=== PATIENT | male | born 1985 | race Caucasian/White ===

== ENCOUNTER 2019-07-27 01:10 | Outpatient (CLI) | payer OTHER, SELFPAY ==
[2019-07-27 12:55] LABS: Calculated LDL 155 mg/dL; Cholesterol 204 mg/dL (50-200); Glucose 96 mg/dL (70-100); HDL Cholesterol 37 mg/dL (40-60); Triglyceride 61 mg/dL (30-150)
== END 2019-07-27 01:30 ==
PROVIDERS: PCP Family Medicine; Visit Provider Family Medicine
DX: Z00.00 Encounter for general adult medical examination without abnormal findings (principal); Z13.1 Encounter for screening for diabetes mellitus; Z13.220 Encounter for screening for lipoid disorders
CPT/HCPCS: 36415; 80061; 82947

== ENCOUNTER 2019-11-21 04:35 | Outpatient (CLI) | payer OTHER, SELFPAY ==
--- NOTE | 2019-12-11 08:23 | W.ZIOMONITOR ---
Date of service: 12/11/19 Time of Service: 08:23 ZIO Patch Supervisor Gate Services Note: This is a 2-week ZIO patch ordered for the indication of supraventricular tachycardia. ?Patient was in normal sinus rhythm for the majority of the recording. ?There were no episodes of supraventricular tachycardia and rare (less than 1%) supraventricular ectopic beats. ?There was one episode of ventricular which lasted 6 beats. ?There were rare (less than 1%) single ventricular ectopic beats. ?There were no pauses greater than 3 seconds, episodes of high degree heart block or episodes of atrial fibrillation. ?There were a total of 6 patient triggered events. Patient triggered events were associated with the one episode of ventricular tachycardia. There were also triggered events associated with sinus rhythm and single ventricular/supraventricular ectopic beats.
== END 2019-11-21 04:55 ==
PROVIDERS: PCP Family Medicine; Visit Provider Family Medicine
DX: I47.1 Supraventricular tachycardia (principal); I49.3 Ventricular premature depolarization
CPT/HCPCS: 0296T

== ENCOUNTER 2020-01-02 01:16 | Outpatient (CLI) | payer OTHER, SELFPAY ==
--- NOTE | 2020-01-02 07:46 | ETT_ITS ---
APPROVED REPORT Exam: Exercise Treadmill Patient Location: Out-Patient Room/Bed: Stress Nurse: Gabrielle Bateman RN BMI: 31.19 Baseline Rhythm: Sinus Rhythm Indications: Patient reports intermittent palpitations since 2005. Patient states he had a Zio patch in 2015 which revealed 3 episodes of SVT, then in 2018 again with Zio patch revealed a 6 beat run V T ach. Note: Propranolol (prescribed for ALVARES???s). Medical History Medical History: SVT, V Tach (per patient report) Cardiac Medications: None Allergies: Augmentin, Penicillin Cardiac Risk Factors: FHX of CAD, Hyperlipidemia Previous Cardiac Procedures: None Pretest Chest Pain Characteristics: None Exercise History: Physically active Physical Disabilities: None Lung Sounds: Clear to auscultation Heart Sounds: Regular Stress Test Details Test: Exercise stress testing was performed using a Hunter protocol. Rest Stress HR Resting HR Supine: 82 bpm Max Heart Rate (APMHR): 185 bpm Resting HR Standin bpm Target HR (85% APMHR): 157 bpm Max HR Achieved: 190 bpm % of APMHR: 102 HR response to stress: Normal HR response to stress BP Resting BP Supine: 148/90 mmHg Resting BP Standin/90 mmHg Max BP: 204/70 mmHg BP response to stress: Normal blood pressure response to stress. ECG Resting ECG: Sinus Rhythm Ectopy: Rare PVC's Stress ECG: Sinus Tachycardia ST Change: Normal Arrhythmia: None Recovery ECG: Sinus Rhythm Recovery ST Change: Normal Recovery Arrhythmia: None Clinical Reason for Termination: Fatigue Stress Symptoms: None Exercise duration: 16 min1 sec Highest Stage Reached: Stage 6: 5.5 mph at 20% grade. Exercise capacity: 15.93 METs Functional Capacity: Above average capacity Stress ECG Conclusion 1. Exercised for 16 minutes (16 METS). The test was stopped due to fatigue. 2. Patient showed a normal blood pressure and heart rate response to exercise. Rate-pressure product was 37,000. 3. There is no evidence of ischemia or ectopy on ECG at this level of stress. 4. The Mayberry Score (13) estimates an annual cardiovascular mortality of 0% and a five year survival of 96%. Using the Mayberry Score there is a low probability of any angiographic coronary disease. Protocol Used: Hunter Protocol Stress Test Summary STAGE Time (mins) Speed (mph) Grade (%) HR BP SYMPTOMS METS Supine 82 148/90 Standing 93 150/90 1 3 1.7 10 106 162/94 4.6 2 6 2.5 12 126 170/92 7 3 9 3.4 14 140 190/90 10.2 4 12 4.2 16 158 198/92 12.9 5 15 5.0 18 17.2 1 min recovery 167 204/70 3 min recovery 117 200/80 6 min recovery 111 160/80 9 min recovery 110 140/84 12 min recovery 104 138/90 15 min recovery 101 150/94
== END 2020-01-02 01:36 ==
PROVIDERS: PCP Family Medicine; Visit Provider Family Medicine
DX: R07.9 Chest pain, unspecified (principal); R00.2 Palpitations; I47.1 Supraventricular tachycardia; E78.5 Hyperlipidemia, unspecified; Z82.49 Family history of ischemic heart disease and other diseases of the circulatory system
CPT/HCPCS: 93017

== ENCOUNTER 2020-08-21 22:01 | Outpatient (REF) | payer OTHER, SELFPAY ==
[2020-08-21 22:22] LABS: Calculated LDL 182 mg/dL (<100); Cholesterol 227 mg/dL (<200); HDL Cholesterol 34 mg/dL (40-60); Triglyceride 55 mg/dL (<150)
== END 2020-08-21 22:21 ==
LOC: LBN 22:01
PROVIDERS: PCP Family Medicine; Visit Provider Family Medicine
DX: E78.5 Hyperlipidemia, unspecified (principal)
CPT/HCPCS: 80061

== ENCOUNTER 2021-12-25 09:56 | Outpatient (CLI) | payer OTHER, SELFPAY ==
--- NOTE | 2021-12-25 10:00 | DI.RAD_ITS ---
Exam(s) XR LUMBAR SPINE COMPLETE EXAM: XR LUMBAR SPINE COMPLETE CLINICAL HISTORY: rt sciatica, back pain, M54.9 dorsalgia. TECHNIQUE: 2D digital imaging was performed of the lumbar spine. Five images were obtained. AP, la teral, right oblique, left oblique and L5-S1 spot views were obtained. COMPARISON: No exams were available for comparison FINDINGS: BONES: No fracture or destructive lesion. Vertebral bodies are unremarkable. Degenerative changes of the facets are seen at L4-5 and L5-S1. DISKS: Intervertebral disc spaces are maintained. ALIGNMENT: Lumbar spinal alignment is within normal limits. No spondylolysis or spondylolisthesis. SOFT TISSUE: Normal. IMPRESSION: Mild degenerative changes in the lumbar spine. DATA REPOSITORY: RADIATION DOSE DELIVERED:
--- OUTSIDE RECORDS SUMMARY | 2021-12-25 10:03 | XMS_ITS | Encounter Summary ---
:1985 Author Organization [facility] Address [address] [place] [id number] Care Team Providers Name Role Phone RACHELE COOL Primary Care Provider Unavailable Insurance Providers: All historical and current Section Date Range: From patient's date of to the date document was created.This section includes the names of all active insurance providers for the patient. Insurance Type of Plan Start of End of Group Member Insurance Policy P atient's Provider Coverage Name Policy Policy Number ID Provider's Jordan's Relationship Coverage Coverage Telephone Name to Policy Number Jordan [facility] May 29 [id number] [phone] [place] , PATIENT EXPENSE OF 2019 [id number] MARICEL (OPT/PROF FEDE ) [facility] May 29 [id number] [phone] [place], PATIENT BEHAVIORAL HEALTH OF 2019 69 3 MARICEL [facility] Nov 29 [id number] [phone] COLGROVE, PATIENT BEHAVIORAL HEALTH 2014 72 3 MARICEL [facility] Nov 29 [id number] [phone] COLGRO VE, PATIENT HEALTHCARE PROVIDER OF 2014 72 4 MARICEL GOLDMAN (PPO) [employer] May [id number], [id number] [phone] COLGR O[address], PATIENT SCRIPTS ION 2019 [id number] MARICEL ([id number]) 0 MAXRA PRESCRIPT [facility] Nov 29, [id number] [phone] COL LICONA, PATIENT ION OF 2014 8 72 7 MARICEL CARDONA Selected Encounter This section includes the information on record at [place] for the Encounter. Date/Time Encounter Type Encounter Description Reason Provider Source May 23, 2021 10:52 Outpatient Encounter PRIMARY CARE/MEDICINE AM [facility] Encounter Template Text not used by [facility] Encounter Notes: All associated encounter notes This section contains the clinical notes associated to the Encounter. Date/Time Encounter Note(s) Provider Source May 22, 2021 12:45 PM NONVA NOTE: LASHON HUANG [facility] LOCAL TITLE: NonVA Medical Records STANDARD TITLE: NONVA NOTE DATE OF NOTE: MAY 22, 2021@12:45 ENTRY DATE: MAY 23, 2021@10:54:23 AUTHOR: LASHON HUANG EXP COSIGNER: URGENCY: STATUS: COMPLETED Non-VA notes The attached Non-VA note contains the following information: Event/Procedure: Neurology Clinic Visit Date of Service: 05/22/2021 Treating Facility: Dictated in part: 1) Migraine headache with aura 2) SVT #1 Migraine headaches with aura. Headaches are under generally good control. Have been concerned about propranolol related fa tigue for some time. It has never been helpful for his p alpitations. Will have him stop this. If headaches increase and he proves to need a preventative we discussed different options. He prefers verapamil as next option and then top iramate as the next best. He will continue to use Excedrin and sumatriptan fo r rescue therapy. Pt instructions: Stop propranolol. Keep tr acking headaches Continue excedrin and sumatriptan as needed Follow up in 1 year Paperwork was sent down to [place] for scanning To view this document, open the CPRS tools menu and then open the image display viewer. /vanessa/ Lashon Huang Housemaid Signed: 05/23/2021 11:05
--- OUTSIDE RECORDS SUMMARY | 2021-12-25 10:04 | XMS_ITS | Encounter Summary ---
:1985 Author Organization Department [facility] rs Address [address] [place] [address] Care Team Providers Name Role Phone RACHELE [...] Coverage Telephone Name to Policy Number Jordan [facility] May 29 [id number] [phone] [place] , PATIENT EXPENSE OF 2019 [id number] ERNESTO (OPT/PROF FEDE ) [facility] May 29 [id number] [phone] [place], PATIENT BEHAVIORAL HEALTH OF 2020 69 3 ERNESTO CARDONA [facility] Nov 29 [id number] [phone] [place], PATIENT BEHAVIORAL HEALTH 2014 72 3 ERNESTO PORTER [facility] Nov 29 [id number] [phone] COLGRO VE, PATIENT HEALTHCARE PROVIDER OF 2014 72 4 ERNESTO GOLDMAN (PPO) [facility] May 29, [id number] [phone] COLGR OVE, PATIENT SCRIPTS ION 2019 [id number] ERNESTO ([id number]) 0 [facility] Nov 29, [id number] [phone] COL LICONA, PATIENT ION OF 2014 8 [phone] 7 ERNESTO CARDONA Selected Encounter This section includes the information on record at [facility] for the Encounter. Date/Time Encounter Type Encounter Reason Provider Source Description Feb 06, 2021 OFFICE O/P EST PRIMARY ICD-10-CM Z00.01 GERARDO FREEMAN 11:00 AM MOD 30-39 MIN CARE/MEDICINE Encounter for SUZANNA general adult medical exam w abnormal findings with Provider Comments: Encounter for General Adult Medical Examination with Abnormal Findings IHE Encounter Template Text not used by [facility] Assessments - Encounter Diagnoses This section includes the primary and secondary diagnoses documented forthe Encounter. Date/Time Primary/Secondary Diagnosis Name Provider Source Diagnosis Feb 06, 2021 PRIMARY Encounter for AUSTIN NUNEZ 12:44 PM general adult [facility] medical exam w abnormal findings Feb 06, 2021 SECONDARY Dry eye syndrome MAYRAAUSTIN BROWNBU RY 12:44 PM of bilateral [facility] lacrimal glands Feb 06, 2021 SECONDARY Migraine, unsp, MAYRA,AUSTIN CASTANEDABUR Y 12:44 PM not intractable, [facility] without status migrainosus Feb 06, 2021 SECONDARY Unspecified MAYRAAUSTIN BROWN 12:44 PM hearing loss, left [facility] ear Plan of Treatment: Future Appointments (+ 6 months) and Future Tests (+/- 45 days) The Plan of Treatment section includes future care activities for the patient from all [place] treatment facilities. This section includes future appointments and future orders which are active, pending or scheduled.Future Appointments This section includes appointments that were scheduled to occur 6 months from the date of the Encounter, up to a maximum of 20 appointments. The data comes from [facility] [place] [facility] Appointment Date/Time Appointment Type Appointment Facili ty Name Feb 12, 2021 09:00 AM AMBULATORY - REHAB MEDICINE YVONNE Casper [facility] Mar 20, 2021 11:00 AM AMBULATORY - NONE YVONNE ARNETT [facility] Lab Results: +/- 30 days of the encounter This section includes the Chemistry and Hematology Lab Results on record with [place] for the patient. Radiology Reports and Pathology Reports are provided separately, in subsequent sections.Lab Results This section contains the Chemistry/Hematology Results that were resulted 30 days before or 30 days after the date of the Encounter. Date/Time Source Result Type Result - Unit Interpretation Reference Range Comment Feb 06, 2021 12:13 [facility] Specimen Type: PLASMA PM [facility] FRACT. 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) Ordering Provider: GERARDO FREEMAN Report Released Date/Time: Feb 06, 2021 12:02 PM Reporting Lab: [place] [facility] [address] [address] Performing Lab: [place] [facility] [address] [address] CHOLESTEROL 220 mg/dL H 0-199 TRIGLYCERIDE 128 mg/dL 0-149 HDL CHOLESTEROL 33 mg/dL L >40 LDL CHOLESTEROL (CALC) 161 mg/dl H 0-129 Feb 06, 2021 [place] GLYCOHEMOGLOBIN (A1C ONLY) Specimen Type: BLOOD 12:13 PM [facility] Comment: 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 [employer] (405) Ordering Provider: GERARDO FREEMAN Report Released Date/Time: Feb 06, 2021 12:02 PM Reporting Lab: [place] [facility] [address] [address] Performing Lab: [facility] [address] [address] HEMOGLOBIN A1C 5.2 % 4.0-5.6 Feb 06, 2021 12:13 PM [place] [facility] CBC NO DIFF Specimen Type: BLOOD No comment enter ed. 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 (405) Ordering Provider: GERARDO FREEMAN Report Released Date/Time: Feb 06, 2021 12:02 PM Reporting Lab: [facility] [address] [address] Performing Lab: [facility] [place] [facility] [address] [address] UREA NITROGEN 16 mg/dL 7-25 SODIUM 138 mmol/L 135-145 POTASSIUM 4.5 mmol/L 3.5-5.0 CHLORIDE 103 mmol/L 100-110 CARBON DIOXIDE 27 mmol/L 20-30 ANION GAP 8 mmol/L 4-16 GLUCOSE 98 mg/dL 65-100 CREATININE 1.16 mg/dl 0.5-1.5 CALCIUM 9.2 mg/dL 8.5-10.5 eGFR 71 mL/min >60 Feb 06, 2021 12:13 PM [facility] LIVER PROFILE Specimen Type: PLASMA Comment: 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 [employer]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 (405) Ordering Provider: GERARDO FREEMAN Report Released Date/Time: Feb 06, 2021 12:02 PM Reporting [facility] [address] [address] Performing Lab: [facility] [place] [facility] [address] [address] PROTEIN, TOTAL 7.9 g/dL 6.0-8.5 ALBUMIN 4.4 g/dL 3.2-5.0 BILIRUBIN, TOTAL 0.8 mg/dL 0.2-1.2 ALKALINE PHOSPHATASE 62 U/L 40-150 ALT(SGPT) 23 U/L 7-52 AST(SGOT) 22 U/L 5-34 Social History: Smoking Status (Most current) and Tobacco Use (All prior to encounter date) This section includes the most current, and the historical, smoking and tobacco-related health factors from the [facility] where the Encounter took place.Current Smoking Status This section includes the most current smoking, or tobacco-related health factor, from the [place] facility where the Encounter took place. Date/Time Current Smoking Status Comment Facility Feb 06, 2021 11:00 AM [facility]TOBACCO [facility] Tobacco Use History This section includes a history of the smoking, or tobacco-related health factors, that were collected on or before the date of the Encounter. The data comes from the [place] facility where the Encounter took place. Date/Time Smoking Status/Tobacco Use Comment [facility] Jan 03, 2020 10:06 AM VA-TOBACCO NEVER [facility] Aug 22, 2018 01:40 PM VA-TOBACCO NEVER [facility] Jan 29, 2016 02:28 PM LIFETIME NON-TOBACCO USER [facility] Dec 09, 2006 02:14 PM LIFETIME NON-TOBACCO USER [facility] Encounter Notes: All associated encounter notes This section contains the clinical notes associated to the Encounter. Date/Time Encounter Note(s) Provider Source Feb 11, 2021 02:35 LETTERS: GERARDO FREEMAN. [facility] LOCAL TITLE: Letter To Patient STANDARD TITLE: LETTERS DATE OF NOTE: FEB 11, 2021@14:35 ENTRY DATE: FEB 11, 2021@14:35:19 AUTHOR: GERARDO FREEMAN EXP COSIGNER: URGENCY: STATUS: COMPLETED [facility] [address] [place] [address] FEB 11, 2021 MR. ERNESTO LARKIN [address], [place] [address] Dear Mr. Ernesto Larkin: I wanted to let you know the results of your l ab work. - Complete Blood Counts > NORMAL (looking for in fection, anemia, ability to clot) HCT: 48.2 (02/06/21 12:13) HGB: 15.8 (02/06/21 12:13) MCH: 30.5 (02/06/21 12:13) MCHC: 32.8 (02/06/21 12:13) MCV: 93.1 (02/06/21 12:13) MPV: 10.1 (02/06/21 12:13) PLT: 279 (02/06/21 12:13) RBC: 5.18 (02/06/21 12:13) RDW: 12.5 (02/06/21 12:13) WBC: 6.5 (02/06/21 12:13) - Cholesterol panel > > Acceptable CHOL: 220 (02/06/21 12:13) Goal < 199 HDL: 33 (02/06/21 12:13) Goal > 40 LDL: 161 (02/06/21 12:13) Goal < 129 TRI (02/06/21 12:13) Goal < 150 - Kidney, electrolytes > NORMAL GLU: 98 (02/06/21 12:13) BUN: 16 (02/06/21 12:13) CREATI: 1.16 (02/06/21 12:13) NA: 138 (02/06/21 12:13) K: 4.5 (02/06/21 12:13) CL: 103 (02/06/21 12:13) CO2: 27 (02/06/21 12:13) eGFR 71 02/06/21 12:13 - Liver >> NORMAL Collection DT Specimen Test Name Result Units Ref Range 02/06/2021 12:13 PLASMA ALBUMIN 4.4 g/dL 3.2 - 5.0 02/06/2021 12:13 PLASMA BILIRUBIN, TOTAL 0.8 mg/dL 0.2 - 1.2 02/06/2021 12:13 PLASMA ALKALINE PH OSPHAT 62 U/L 40 - 150 02/06/2021 12:13 PLASMA ALT(SGPT) 23 U/L 7 - 52 02/06/2021 12:13 PLASMA AST(SGOT) 22 U/L 5 - 34 - Diabetes/HbA1c was NORMAL HGB A1C: 5.2 (02/06/21 12:13) Reference: 4.0 - 5.6 normal, 5.7 - 6.4 pre-diabe julio, >=6.5% diabetic range If you have any further questions feel free to c all [phone]. Please ask for the nurse and leave a de tailed message related to your question or concern. We are ready to assist you in your health and we llness goals. Sincerely, Gerardo Freeman, [place], FIRE PREVENTION RESEARCH ENGINEER Nurse Practitioner Feb 06, 2021 11:06 PRIMARY CARE NOTE: [facility] TITLE: Primary Care Clinic Note STANDARD TITLE: PRIMARY CARE NOTE DATE OF NOTE: FEB 06, 2021@11:06 ENTRY DATE: FEB 06, 2021@11:06:51 AUTHOR: GERARDO FREEMAN EXP COSIGNER: URGENCY: STATUS: COMPLETED 36 year old Cinebar with a PMH of: Migraines SUBJECTIVE: cc: here for annual exam HPI: Pt is feeling healthy and well with no acu te concerns Migraines -Has been on a propranolol for a few years -Still having ALVARES, not as frequent -Reports that he has migraines about every 5 wee ks (down from weekly) -Still has ALVARES 6-8 a month, which he reports is a decreased frequency -Sumatriptan... has used only a few times... end ed up nauseas once -uses Excedrin PRN... 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 Reports good appetite. ENDO: Denies significant weight changes EENT: Denies ear pain, sore throat; denies visio n CV: Denies chest pain, MALDONADO Reports irregular HR, palpitations (stab le for him) PULM: Denies SOB, difficulty breathing, cough GI: Denies n/v, diarrhea, constipation, blood in stool : Denies urinary frequency, urgency, Nocturia, changes in libido, difficulty/changes with erections. Sexually Acti ve [Y], safe sex: yes MSK: Denies joint pain, myalgias NEURO: Denies numbness/tingling, weakness, be e in gait/balance EXT: Denies edema, pain SKIN: Denies new or changed lesions PSYCH: Feels safe at home. Reports anxie ty [-], feeling down [-], depressed or hopeless [-]. 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 Supraventricular tachycardia 2. Obesity 3. HLD - Hyperlipidemia 4. Impaired fasting glucose 5. Migraine (SNOMED CT 55683897) 6. Pounding heart (SNOMED CT 132533117) 7. Tinnitus (SNOMED CT 33637319) 8. Health Maintenance MEDS: Active Outpatient Medications (excluding Supplie s): Active Outpatient Medications Status 1) PROPRANOLOL HCL 80MG SA CAP TAKE ONE CAPSUL E BY MOUTH ACTIVE EVERY DAY FOR BLOOD PRESSURE/HEART 2) SUMATRIPTAN SUCCINATE 50MG TAB TAKE ONE TAB LET BY ACTIVE MOUTH NEEDED FOR MIGRAINE HEADACHE - T SEBASTIAN AT FIRST SIGN OF HEADACHE,MAY REPEAT ONCE IN TWO HOURS IF HEADACHE REMAINS TAKE ONE TABLET AT O NSET OF HEADACHE, IF NOT RELIEF MAY REPEAT 1 TABL ET AFTER AT LEAST 2 HOURS; MAX 4 TABS/24 HOURS. RX BY SAMM VAN STRATEN, MD Active Non-VA Medications Status 1) Non-VA ACETAMINOPHEN 250/ASA 250/CAFF 65MG TAB 2 ACTIVE TABLETS MOUTH EVERY DAY NEEDED 2) Non-VA MULTIVITAMIN/MINERALS CAP/TAB 1 TAB MOUTH ACTIVE EVERY DAY 4 Total Medications ALLERGIES: PENICILLIN OBJECTIVE: T: 97.8 F [36.6 C] (02/06/2021 10:55) BP:122/81 (02/06/2021 10:55) HR:63 (02/06/2021 10:55) SpO2: 02/06/21 @ 1055 PULSE OXIMETRY: 98 BMI: BODY MASS INDEX - FEB 06, 2021@10:55:01 3 2.5 WT: 238.8 lb. [108.5 kg] (02/06/2021 10:55) HT: 72 in [182.9 cm] (02/06/2021 10:55) GEN: Well-appearing, male in no apparent distres s. ENT: hearing intact, TMs normal NECK: supple. Thyroid normal. CV: RRR S1 S2 normal, no murmurs, rubs or gallop s CHEST: CTA bilateral, no crackles or wheezes ABD: BS normal, soft, nontender, no masses, no h epatosplenomegaly EXT: no edema; 2+ palpable pulses bilateral radi al and posterior tibialis MSK: Coordinated gait, bilateral UE and LE proxi mal and distal strength 5/5 NEURO: Alert and oriented, CN II-XII elke ssly intact, DTRs 2+ bilateral biceps, triceps, patellar, and Achilles SKIN: pink warm dry, no rashes LYMPH: no lymphadenopathy PSYCH: Appropriate affect and demeanor, normal s peech pattern Labs/Tests: ASSESSMENT/PLAN: 1. Annual Exam -Medications reviewed and updated -Labs ordered 2. Migraine with aura -Continue with Propranolol and Sumatript an Tabs -Discussed changing to nasal sumatriptan or ODT rizatriptan if he continues to have issues with nausea -Encouraged to keep ALVARES Diary again (mini mum 3 months) -Discussed Aimovig v s. Botox therapy if he has 15 or more ALVARES days/month -Will call with ALVARES diary results if he i s interested in above -Discussed renewing CC Neurology consult [facility] Samm Nieves MD 3. Left sided hearing changes -Encouraged to sched ule appointment with audiology before leaving today -ENT consult to [facility] placed 4. Dry Eyes -Trial CARBOXYMETHYLCELLULOSE 1% GEL,O PH 1% q 2 hours PRN -Eye Clinic Consult For [facility] Eye [facility] re (appointment in 05/06/2021) 5. Possible Sleep Apnea -Discussed sleep clinic consult, decline d at this due to other issues -Hx loud snoring, frequent morning ALVARES, l arge neck -Will place sleep clinic consult if he c alls clinic requesting Reviewed: Medication/treatment benefits/risks/si de effects/monitoring Preventive/Health Maintenance: diet and exercise discussed RTC: 12 months for annual exam and PRN Reminders: Advance Directive Screen: Patient does not have an advanced directiv e on file. Patient is interested in completi ng an advanced directive. A blank copy was given to the patient and he/she will return a compl eted copy. The patient received education about advan ce directives as well as written notification of his/her rights. BMI>30/>24.99 High Risk: At this visit, the health risks of obesity were reviewed and discussed with the [place], and the benefits of a weight management treatment program, such as [facility]! was discussed and offered to the [place]. After discussing the health risks of b eing overweight or obese and providing information about available weight management treatment, and offering a referral to [facility] or ano ther weight management treatment program outside the [facility], the patient DECLINES REFERRAL to M[facility] or any other weight management tr eatment program at this time. Tobacco Use Screening: The patient has never used tobacco. Lipid Screening: Lipid profile ordered at this encounter. Medication Reconciliation: Outpatient: Has the patient been taking medications as documented in the EMLR? YES: The patient has been taking medicatio ns as documented in the EMLR. Essential Medication List for Review used to complete this medication reconciliation. INCLUDED IN THIS LIST: Alphabetical list o f active outpatient prescriptions dispensed from this [facility] (loca l) and dispensed from another VA or [facility] facility (remote) as well as inp atient orders (local, pending and active), local clinic medications, loc ally documented non-VA medications, and local prescriptions that have or been discontinued in the past 90 days. - All changes in medic ations, including all non-VA/Herbal/OTC medications were entered into CPRS. - If there were any medications the patien t should no longer take, they were discontinued. - The patient/caregiver was instructed to update this list, discard old lists, and take this list to the next appo intment, whether with a VA or non-VA provider. Depression Screening: Perform PHQ-2 A PHQ-2 screen was performed. The sc ore was 0 which is a negative screen for depression. Over the past two weeks, how often h ave you been bothered by the following problems? 1. Little interest or pleasure in do ing things Not at all 2. Feeling down, depressed, or hopel ess Not at all Suicide Screen: C-SSRS Screening [place]-Suicide Severity Rating Scale (C- SSRS Screener) 1. Over the past month, have you wished you were or wished you could go to sleep and not wake up? No 2. Over the past month, have you had any actual thoughts of killing yourself? No 3. Over the past month, have you been th inking about how you might do this? Response not required due to responses t o other questions. 4. Over the past month, have you had the se thoughts and had some intention of acting on them? Response not required due to responses t o other questions. 5. Over the past month, have you started to work out or worked out the details of how to kill yourself? Response not required due to responses t o other questions. 6. If yes, at any time in the past month did you intend to carry out this plan? Response not required due to responses t o other questions. 7. In your lifetime, have you ever done anything, started to do anything, or prepared to do anything to end your life (for example, collected pills, obtained a gun, gave away valuables, went to the roof but didn't jump)? No 8. If YES, was this within the past 3 mo nths? Response not required due to responses t o other questions. /vanessa/ Gerardo Freeman, DNP, FIRE PREVENTION RESEARCH ENGINEER Nurse Practitioner Signed: 02/06/2021 12:44 Feb 06, 2021 10:59 PRIMARY CARE ANNUAL EVALUATION NOTE: Alcides LOMAX [facility] AM [facility] TITLE: Preventive Health Annual Review STANDARD TITLE: PRIMARY CARE ANNUAL EVALUATION N OTE DATE OF NOTE: FEB 06, 2021@10:59 ENTRY DATE: FEB 06, 2021@10:59:33 AUTHOR: FREDY LOMAX EXP COSIGNER: URGENCY: STATUS: COMPLETED Advance Directive Screen: Patient does not have an advanced directiv e on file. Patient is interested in completi ng an advanced directive. A blank copy was given to the patient and he/she will return a compl eted copy. The patient received education about advan ce directives as well as written notification of his/her rights. Alcohol Use Screen (AUDIT-C): Alcohol Screen: SCREEN FOR ALCOHOL (AUDIT-C) An alcohol screening test (AUDIT-C ) was negative (score=0). 1. How often did you have a drink containing alcohol in the past year? Never 2. How many drinks containing alco hol did you have on a typical day when you were drinking in the past year? Response not required due to respo nses to other questions. 3. How often did you have six or m ore drinks on one occasion in the past year? Response not required due to respo nses to other questions. /vanessa/ FREDY LOMAX Health Engineer/Conductor Signed: 02/06/2021 11:00
--- OUTSIDE RECORDS SUMMARY | 2021-12-25 10:04 | XMS_ITS | Encounter Summary ---
:1985 Author Organization Department [facility] Address [address] [place] [id number] Care Team Providers Name Role Phone RACHELE [...] Coverage Telephone Name to Policy Number Jordan [facility] May 29 [id number] [phone] [place] , PATIENT EXPENSE OF 2019 [id number] MARICEL (OPT/PROF FEDE ) [facility] May 29 [id number] [phone] [place], PATIENT BEHAVIORAL HEALTH OF [phone] 3 MARICEL HEALTH FEDE CARD[facility] Nov 29 [id number] [phone] [place], PATIENT BEHAVIORAL HEALTH 2014 72 3 MARICEL HEALTH PENDING SALE TO [facility] Nov [id number] [phone] COL[place] VE, PATIENT HEALTHCARE PROVIDER OF 2014 72 4 MARICEL GOLDMAN (PPO) [facility] May 29, [id number] [phone] COLGR [address], PATIENT SCRIPTS ION 2019 [id number] MARICEL ([id number]) 0 [employer] PRESCRIPT [facility] Nov 29, [id number] [phone] COL LICONA, PATIENT ION OF 2014 8 [phone] 7 MARICEL CARDONA Selected Encounter This section includes the information [facility] record at [facility] for [facility]. Date/Time Encounter Type Encounter Reason Provider Source Description Feb 12, 2021 COMPREHENSIVE AUDIOLOGY ICD-10-CM H90.3 STACIE RANDOLPH 09:00 AM HEARING TEST Sensorineural EY A hearing loss, bilateral with Provider Comments: Sensorineural hearing loss, bilateral (SNOMED CT [id number]) IHE Encounter Template Text not used by [facility] Assessments - Encounter Diagnoses This section includes the primary and secondary diagnoses documented forthe Encounter. Date/Time Primary/Secondary Diagnosis Name Provider Source Diagnosis Feb 12, 2021 PRIMARY Sensorineural SHERRY RANDOLPH Y 10:59 AM hearing loss, A [facility] bilateral Feb 12, 2021 SECONDARY Tinnitus, SHERRY RANDOLPH 10:59 AM unspecified ear [facility] Plan of Treatment: Future Appointments (+ 6 months) and Future Tests (+/- 45 days) The Plan of Treatment section includes future care activities for the patient from all NH treatment facilities. This section includes future appointments and future orders which are active, pending or scheduled.Future Appointments This section includes appointments that were scheduled to occur 6 months from the date of the Encounter, up to a maximum of 20 appointments. [facility] Appointment Date/Time Appointment Type Appointment Facili ty Name Mar 20, 2021 11:00 AM AMBULATORY - NONE [facility] Surgical Procedures: All associated to the encounter This section includes all Surgical Procedures and Surgical Procedure Notes associated to the Encounter.Surgical Procedures This section includes all Surgical Procedures associated to the Encounter.Surgical Procedure Date/Time Procedure Procedure Type Procedure Provider Source Qualifiers Feb 12, 2021 Comprehensive COMPREHENSIVE STACIE RANDOLPH ST. 09:00 AM Audiometric Exam HEARING TEST EY A [facility] DUKES [facility] Surgical Notes There are no notes associated with this procedure. Lab Results: +/- 30 days of the encounter This section includes the Chemistry and Hematology Lab Results on record with NH for the patient. Radiology Reports and Pathology Reports are provided separately, in subsequent sections.Lab Results This section contains the Chemistry/Hematology Results that were resulted 30 days before or 30 days after the date of the Encounter. Date/Time Source Result Type Result - Unit Interpretation Reference Range Comment Feb 06, 2021 12:13 [place] LIPOPROTEIN CHOLESTEROL Specimen Type: PLASMA PM [facility] FRACT. PANEL Comment: 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 [facility] Admissions Specialist (405) Ordering Provider: GERARDO FREEMAN Report Released Date/Time: Feb 06, 2021 12:02 PM Reporting Lab: [place] [facility] [address] [facility] [address] Performing Lab: [place] [facility] [address] [facility] [address] CHOLESTEROL 220 mg/dL H 0-199 TRIGLYCERIDE 128 mg/dL 0-149 HDL CHOLESTEROL 33 mg/dL L >40 LDL CHOLESTEROL (CALC) 161 mg/dl H 0-129 Feb 06, 2021 [place] GLYCOHEMOGLOBIN (A1C ONLY) Specimen Type: BLOOD 12:13 PM [facility] Comment: 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 [facility] Admissions Specialist (405) Ordering Provider: GERARDO FREEMAN Report Released Date/Time: Feb 06, 2021 12:02 PM Reporting Lab: [place] [facility] [address] [facility] [address] Performing Lab: [place] [facility] [address] [facility] [address] HEMOGLOBIN A1C 5.2 % 4.0-5.6 Feb 06, 2021 12:13 PM [place] [facility] CBC NO DIFF Specimen Type: BLOOD No comment enter ed. Ordering Provider: GERARDO FREEMAN Report Released Date/Time: Feb 06, 2021 12:02 PM Reporting Lab: [place] [facility] [address] [facility] [address] Performing Lab: [place] [facility] [address] [facility] [address] WBC 6.5 10*3/uL 4.5-11.0 RBC 5.18 10*6/uL 4.23-5.66 HGB 15.8 g/dl 12.8-17 HEMATOCRIT 48.2 % 39.2-50.4 MCV 93.1 fl 82-99 MCH 30.5 pg 26.2-32.6 MCHC 32.8 g/dl 30.8-35.1 PLT 279 10*3/uL 140-360 MPV 10.1 fl 9.2-12.4 RDW 12.5 % 12.0-16.0 Feb 06, 2021 [facility] P4 GLU,BUN,CREAT,LYTES,CA Specimen Type: PLASMA 12:13 PM [facility] Comment: 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 [facility] Admissions Specialist (405) Ordering Provider: GERARDO FREEMAN Report Released Date/Time: Feb 06, 2021 12:02 PM Reporting Lab: [facility] [address] [facility] [address] Performing Lab: [facility] [address] [facility] [address] UREA NITROGEN 16 mg/dL 7-25 SODIUM 138 mmol/L 135-145 POTASSIUM 4.5 mmol/L 3.5-5.0 CHLORIDE 103 mmol/L 100-110 CARBON DIOXIDE 27 mmol/L 20-30 ANION GAP 8 mmol/L 4-16 GLUCOSE 98 mg/dL 65-100 CREATININE 1.16 mg/dl 0.5-1.5 CALCIUM 9.2 mg/dL 8.5-10.5 eGFR 71 mL/min >60 Feb 06, 2021 12:13 PM [facility] LIVER PROFILE Specimen Type: PLASMA Comment: 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 [facility] Admissions Specialist (405) Ordering Provider: GERARDO FREEMAN Report Released Date/Time: Feb 06, 2021 12:02 PM Reporting Lab: [facility] [address] [facility] [address] Performing Lab: [facility] [address] [facility] [address] PROTEIN, TOTAL 7.9 g/dL 6.0-8.5 ALBUMIN 4.4 g/dL 3.2-5.0 BILIRUBIN, TOTAL 0.8 mg/dL 0.2-1.2 ALKALINE PHOSPHATASE 62 U/L 40-150 ALT(SGPT) 23 U/L 7-52 AST(SGOT) 22 U/L 5-34 Social History: Smoking Status (Most current) and Tobacco Use (All prior to encounter date) This section includes the most current, and the historical, smoking and tobacco-related health factors from the [facility] where the Encounter took place.Current Smoking Status This section includes the most current smoking, or tobacco-related health factor, from the NH facility where the Encounter took place. Date/Time Current Smoking Status Comment Facility Feb 06, 2021 11:00 AM VA-TOBACCO NEVER USED [facility] Tobacco Use History This section includes a history of the smoking, or tobacco-related health factors, that were collected on or before the date of the Encounter. The data comes from the [facility] where the Encounter took place. Date/Time Smoking Status/Tobacco Use Comment [facility] Jan 03, 2020 10:06 AM VA-TOBACCO NEVER USED [facility] Aug 22, 2018 01:40 PM VA-TOBACCO NEVER USED . [facility] Jan 29, 2016 02:28 PM LIFETIME NON-TOBACCO USER . [facility] Dec 09, 2006 02:14 PM LIFETIME NON-TOBACCO USER [facility] Encounter Notes: All associated encounter notes This section contains the clinical notes associated to the Encounter. Date/Time Encounter Note(s) Provider Source Feb 12, 2021 09:48 AM AUDIOLOGY NOTE: SHERRY RANDOLPH [facility] LOCAL TITLE: Audiology Note STANDARD TITLE: AUDIOLOGY NOTE DATE OF NOTE: FEB 12, 2021@09:48 ENTRY DATE: FEB 12, 2021@09:49:23 AUTHOR: SHERRY RANDOLPH EXP COSIGNER: URGENCY: STATUS: COMPLETED AUDIOLOGIC EVALUATION: REFERRED BY: Self/PCP : 1985 AGE: 36 Temperature taken and was within normal limits. COVID screening completed that was negative. 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 REASON FOR EVALUATION & GENE RAL MEDICAL HISTORY: 's PCP referred him for a hearing evaluation. Vetera n said in the last year he has noticed his left ear makes a gurgling sound whe n he hears a loud impulse sound. For example when an alarm goes off or he drops a weight, his left ea r gurgles for a few seconds after this sound. He said it resolves after a few seconds. He said this started 1 year ago and happens consistently in the left ear with impulse sounds. He denied ear pain, aural fulln ess and otorrhea. [place] has already been referred to ENT through community care and is in the proc ess of scheduling an appointment. has long standing ti nnitus, bilaterally. He described his tinnitus as a ringing sound and said this has remained stabl e. He denied any otologic changes or change to his overall hearing. TINNITUS: See above DIZZINESS/VERTIGO: Denied FAMILY HISTORY OF HEARING LOSS: Denied OTOLOGIC HISTORY: [place] denied ear pain, aural fullness, otorrhea and any sudden otologic changes. LAST HEARING EVALUATION: [phone] 5058 1500 2000 3000 4000 6000 8000 Right 10 10 5 10 45 40 40 5 Left 10 10 10 10 40 40 40 20 CURRENT HEARING AIDS: None IMPRESSIONS: OTOSCOPY: Canals are clear. Unremarkable. TYMPANOMETRY: CNT due to equipment malfunction ACOUSTIC REFLEXES: CNT due to equipment malfunct ion RELIABILITY: Good SYMMETRY: Symmetrical DEGREE AND TYPE OF HEARING LOSS: RIGHT: Mild to moderate high frequency sensorine ural hearing loss LEFT: Mild to moderate high frequency sensorineu ral hearing loss *Hearing loss is stable compared to last test in 2017 WORD DISCRIMINATION: JAEMS W-22/25 RIGHT - 100% at 60 dB HL w/masking SRT: 14 dB HL LEFT - 100% at 60 dB HL w/masking SRT: 20 dB HL AUDIOGRAM Audiogram is available in this patient's electro yasmeen medical record. To view the actual audiogram , click the Tools menu, and choose Rehab Medicine then Audiogram Display EDUCATION: Patient was counseled on the test results, benef its and limitations of amplification, and strategies to improve communi cation. RECOMMENDATIONS: Agree with ENT referral for further evaluation of the left ear. Aditya is working with [facility] to schedu le the appointment. PLAN: -[facility] ENT referral -Hearing evaluation in 2-3 years or sooner if a sudden change is noted -f/u per aditya request PROCEDURES COMPLETED: Otoscopy Air Conduction Threshold Testing Bone Conduction Threshold Testing Speech Pharmaceutical Engineer Threshold Testing Word Recognition Testing /vanessa/ Opal GUSMAN Clinical Consultant Signed: 02/12/2021 10:59
== END 2021-12-25 10:16 ==
PROVIDERS: PCP Family Medicine; Visit Provider Family Medicine
DX: M54.41 Lumbago with sciatica, right side (principal); M47.27 Other spondylosis with radiculopathy, lumbosacral region
CPT/HCPCS: 72110

== ENCOUNTER 2022-01-13 00:39 | Outpatient (CLI) | payer OTHER, SELFPAY ==
--- NOTE | 2022-01-13 06:45 | DI.MRI_ITS ---
Exam(s) MR LUMBAR SPINE WO EXAM: MR LUMBAR SPINE WO CLINICAL HISTORY: worsening pain, weakness of rt leg, despite PT,bulging lumbar disc,m51.26. TECHNIQUE: Multiplanar multisequence MRI of the Lumbar spine was performed. COMPARISON: CR XR LUMBAR SPINE COMPLETE from 12/25/2021 FINDINGS: Conus medullaris is at normal level. There is no evidence of conus mass nor subjacent clumping of in trathecal nerve roots to suggest arachnoiditis. The distal thecal sac appears unremarkable.There is no evidence of Tarlov intrasacral cysts nor other significant findings within the sacral canal Bones:There are no fractures nor ominous osseous lesions in the lumbar vertebral bodies and visualize d sacrum. There is a small benign intraosseous hemangioma in the left side of the L3 vertebral body With respect to the individual levels... T12-L1: Unremarkable L1-2: Normal disc height and signal. No disc herniation nor central canal stenosis.No foraminal steno sis L2-3: Normal disc height. No disc herniation nor central canal stenosis.No foraminal stenosis.No face t arthropathy. L3-4: Normal disc height. No disc herniation or central canal stenosis.No foraminal stenosis.No face t arthropathy. L4-5: Normal disc height and signal. No disc herniation. No canal stenosis. No foraminal stenosis. No significant facet arthropathy. L5-S1: Normal disc height and signal. However, there is a posterior central subligamentous disc prot rusion which extends posteriorly 3 millimeters and is approximately 1.2 cm wide. This slightly inden ts the anterior aspect of the thecal sac. However, the central canal dimensions are within normal li mits. There is no foraminal stenosis. Disc herniation does not extend into the exiting neural alexus lydia. There is no significant facet arthropathy. Soft tissues: paraspinal soft tissues appear unremarkable.There is a small cyst noted in the right k idney measuring approximately 1 cm. IMPRESSION: 1. There is a small central subligamentous disc protrusion at L5-S1 level as described above. This s lightly indents the anterior aspect of the thecal sac. There is, however, no significant central spi nal canal stenosis. AP measurement of the spinal canal at this level is 17 millimeters. There is al so no significant foraminal stenosis at this level. 2. Other levels in the lumbar spine appear unremarkable. 3. Benign-appearing small intraosseous hemangioma noted in the left side of L3 vertebral body DATA REPOSITORY:
== END 2022-01-13 00:59 ==
PROVIDERS: PCP Family Medicine; Visit Provider Family Medicine
DX: M79.604 Pain in right leg; M51.27 Other intervertebral disc displacement, lumbosacral region
CPT/HCPCS: 72148

== ENCOUNTER 2023-06-03 15:18 | Outpatient (CLI) | payer OTHER, SELFPAY ==
--- NOTE | 2023-06-03 14:37 | DI.RAD_ITS ---
Exam(s) XR SHOULDER LT COMPLETE 2+V EXAM: XR SHOULDER LT COMPLETE 2+V CLINICAL HISTORY: lft shoulder pain, M25.512. TECHNIQUE: 2D digital imaging was performed. Five views. COMPARISON: No exams were available for comparison FINDINGS: BONES: No acute fracture is present. No bony destructive lesion is seen. There is mild spurring at t he rim of the glenoid. Glenohumeral joint space is maintained. There is subchondral cysts in the po sterior inferior glenoid. JOINTS: No dislocation present. AC joint shows no significant spurring. SOFT TISSUE: Normal. IMPRESSION: Degenerative changes with subchondral cyst in the posterior inferior glenoid. DATA REPOSITORY: RADIATION DOSE DELIVERED:
== END 2023-06-03 15:38 ==
LOC: DI 15:20
PROVIDERS: PCP Family Medicine; Visit Provider Nurse Practitioner Family
DX: M19.012 Primary osteoarthritis, left shoulder (principal); M85.612 Other cyst of bone, left shoulder
CPT/HCPCS: 73030

== ENCOUNTER 2023-07-26 09:10 | Outpatient (REF) | payer OTHER, SELFPAY ==
[2023-07-27 10:25] LABS: Lyme Ab w Rflx to Lyme Confirm Negative (Negative)
== END 2023-07-26 09:11 | disposition home or self-care (01) ==
LOC: LBN 09:10
PROVIDERS: PCP Family Medicine; Visit Provider Family Medicine
DX: M25.512 Pain in left shoulder (principal)
CPT/HCPCS: 86618

== ENCOUNTER → 2023-08-18 01:25 | Outpatient (CLI) | payer OTHER, SELFPAY ==
--- NOTE | 2023-08-18 07:45 | DI.MRI_ITS ---
Exam(s) MR UPPER JOINT LT WO EXAM: MR UPPER JOINT LT WO CLINICAL HISTORY: L SHOULDER PAIN,BICEPS TENDINITIS,M75.22. TECHNIQUE: Multiplanar multisequence MRI was performed. COMPARISON: Plain films 03 June 2023 FINDINGS: BONES: There is no fracture or contusion pattern. There are multiple small subchondral cysts in the posterior glenoid. JOINTS:The acromioclavicular joint is normal. The glenohumeral joint no significant fluid. TENDONS: Supraspinatus: Unremarkable. Infraspinatus: Unremarkable. Subscapularis: Unremarkable. Teres Minor: Unremarkable. Biceps and Kenney: The anchor is intact. There is longitudinally oriented linear high signal in the upper biceps tendon, anterior to the humeral head. Biceps is normally positioned. Small round of wills rrounding fluid MUSCLES: Unremarkable. GLENOID LABRUM: Unremarkable on this noncontrast examination. SOFT TISSUES: Unremarkable. OTHER: Subacromial and subdeltoid bursae no significant fluid. . IMPRESSION: Longitudinal split of the biceps tendon. Multiple subchondral cysts in the posterior glenoid. DATA REPOSITORY:
== END ==
PROVIDERS: PCP Family Medicine; Visit Provider Student in an Organized Health Care Education/Training Program
DX: M75.22 Bicipital tendinitis, left shoulder (principal)
CPT/HCPCS: 73221

== ENCOUNTER 2024-03-28 09:41 | Outpatient (CLI) | payer OTHER, SELFPAY ==
[2024-03-28 12:44] LABS: Calculated LDL 165 mg/dL (<100); Cholesterol 224 mg/dL (<200); Glucose 106 mg/dL (74-106); HDL Cholesterol 39 mg/dL (40-60); Triglyceride 103 mg/dL (<150)
[2024-03-29 09:01] LABS: Hepatitis C Ab w Rflx HCV PCR Reactive (Negative)
[2024-03-29 10:00] LABS: HIV-1/2 Ag & Ab Screen Negative (Negative)
[2024-03-30 13:59] LABS: HCV RNA Qualitative Undetected (Undetected)
== END 2024-03-28 09:42 | disposition home or self-care (01) ==
LOC: LOS 09:41
PROVIDERS: PCP Family Medicine; Referring Provider Family Medicine; Visit Provider Family Medicine
DX: E78.5 Hyperlipidemia, unspecified (principal); R73.9 Hyperglycemia, unspecified; Z11.59 Encounter for screening for other viral diseases; Z00.00 Encounter for general adult medical examination without abnormal findings
CPT/HCPCS: 36415; 80061; 82947; 86803; 87389; 87522

== ENCOUNTER 2025-05-10 19:28 | Emergency (ER) | payer OTHER, SELFPAY ==
--- NOTE | 2025-05-10 19:30 | DI.RAD_ITS ---
Exam(s) XR FOREARM RT EXAM: XR FOREARM RT CLINICAL HISTORY: kicked by horse, lateral swelling. TECHNIQUE: 2D digital imaging was performed. COMPARISON: No exams were available for comparison FINDINGS: Two views There is soft tissue swelling around the distal radius and ulna. This is more prominent on the medial side of the distal forearm. There is no radiopaque foreign body nor gas in the soft tissues. There are no fractures of the radius and ulna. Bone density normal. No osseous lesions. No evidence of osteomyelitis. IMPRESSION: Soft tissue swelling in the distal medial forearm. No radiopaque foreign body. No significant osseous findings in the radius and ulna. DATA REPOSITORY: RADIATION DOSE DELIVERED:
--- NOTE | 2025-05-10 19:30 | DI.RAD_ITS ---
Exam(s) XR WRIST LT COMPLETE EXAM: XR WRIST LT COMPLETE CLINICAL HISTORY: kicked by horse, lateral swelling. TECHNIQUE: 2D digital imaging was performed. COMPARISON: No exams were available for comparison FINDINGS: 3 views There is a small osteophytic density just medial to the distal radius to, just distal to the distal radioulnar joint. This measures 3 millimeters. May or may not be acute. There is mild deformity of the scaphoid-navicular which may be from healed fracture. Scapholunate distance is upper normal. There is no carpal dislocation. IMPRESSION: Findings as above. If clinically indicated follow-up MRI can be performed. DATA REPOSITORY: RADIATION DOSE DELIVERED:
[2025-05-10 19:31] VITALS: BP 189/117; PULSE 92; RESP 18; TEMP 36.3; O2SAT 97
--- NOTE | 2025-05-10 19:36 | W.ED.GENAD ---
Discharge Plan Disposition Patient Disposition: Home Condition: Stable Discharge Details Clinical Impression: Hematoma of right forearm Primary Care Provider: Roderick Deluna ED Provider: Shania Nickerson Home Meds and New Rx's Prescriptions: No Action Nurtec ODT 75 mg tablet,disintegrating 75 mg PO ONCE PRN (Reason: migraine headache) Qty: 10 5RF Rx Instructions: as a single dose; do not take more than once every 24 hours Excedrin Migraine 1 EACH tablet 2 ea PO PRN Discharge Instructions Instructions: Acute Pain, Adult (DC) Additional Instructions: You were seen in the emergency department today for evaluation after being kicked by a horse. In our department you had a full physical examination performed, and had x-ray imaging that did not show any sign of fracture, dislocation, or other abnormality other than a large hematoma. I do recommend that you continue to ice and elevate the area to reduce swelling, though it can take several weeks for hematomas of that size to resolve completely. Please use therapeutic dosing of Tylenol (acetaminophen) & Advil (ibuprofen) in an alternating fashion as follows: Take 1000mg of Tylenol every 6 hours without missing doses- that is 4 times per day. [facility] in between the Tylenol doses, take 600mg of Advil also on a 6 hour schedule, that is also 4 times per day. With this strategy, you will be taking something for fever/pain as often as every 3 hours. The daily maximum dosing of Tylenol is 4000mg, and the daily maximum dosing of Advil is 2400mg. Please note that some common cold medications & prescription pain medications may contain acetaminophen and you need to read OTC drug labels and factor that in to maximum daily doses. You can use an Cecil wrap to provide some gentle compression. Please follow-up with your primary care provider in the next few days to discuss this visit and any symptoms that change, worsen, or persist. Thank you for allowing us to be part of your care. HPI General Mode of arrival: ambulatory. Date/Time Provider Initiated Documentation: 05/10/25 19:30. Limitations to Documentation: no limitations. Information obtained by: patient, family and old records reviewed. HPI Narrative: This is a 40-year-old male patient with a past medical history significant for hyperlipidemia, presenting for evaluation after being kicked in the right wrist by a horse. 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 This happened a second time, for a total of 6 impacts over the lateral wrist. The patient did not fall, did not get kicked in any other area, and has otherwise been in his normal state of health. Reports that he did not take any medicines prior to arrival, this happened about 30 minutes ago, and he denies any numbness, tingling, or weakness distal to this injury. He is right-hand dominant. No skin breaks that he has noted. Related Data Home Medications ?Medication ?Instructions ?Recorded ?Confirmed pzgfjff-fxcnjhbzsvswf-[id number] 250 2 ea PO PRN 07/29/17 05/10/25 mg-250 mg-65 mg tablet (Excedrin Migraine) rimegepant 75 mg disintegrating 75 mg PO ONCE PRN migraine 04/10/25 05/10/25 tablet (Nurtec ODT) headache #10 tabs Previous Rx's ?Medication ?Instructions ?Recorded rimegepant 75 mg disintegrating 75 mg PO ONCE PRN migraine 04/10/25 tablet (Nurtec ODT) headache #10 tabs Allergies Allergy/AdvReac Type Severity Reaction Status Date / Time amoxicillin trihydrate (From Allergy Intermediate RASH Verified 05/10/25 19:35 Augmentin) Penicillins Allergy Intermediate RASH Verified 05/10/25 19:35 potassium clavulanate (From Allergy Intermediate RASH Verified 05/10/25 19:35 Augmentin) General Stated Complaint: Orthopedic LISSA: 3 Exam Narrative Exam Narrative: Gen: Awake and alert, in no apparent distress HEENT: Non-icteric sclera Neck: Supple Lungs: No apparent respiratory distress, normal respiratory effort. CV: Appears well perfused, strong distal pulses Abdomen: Non-distended MSK: Moves 4 extremities without apparent limitation in ROM. The patient does have a large approximately 8 cm hematoma to the lateral aspect of the right forearm just proximal to the wrist, with no overlying skin breaks. He has no anatomical snuffbox tenderness, has a full intact neurovascular examination of the right hand distal to this injury, with brisk capillary refill and preserved sensation and strength. Skin: Visualized skin without rashes, cyanosis. Neuro: Normal Gait, no obvious focal deficits or facial asymmetry. Speaks in full, clear sentences. Psych: Appropriate for situation. Course Vital Signs Vital signs: Vital Signs Temperature 36.3 C L 05/10/25 19:31 Pulse 92 H 05/10/25 19:31 Respiratory Rate 18 05/10/25 19:31 Blood Pressure 189/117 H 05/10/25 19:31 Pulse Oximetry 97 05/10/25 19:31 Temperature 36.3 C L 05/10/25 19:31 Temperature Source Skin 05/10/25 19:31 Pulse 92 H 05/10/25 19:31 Respiratory Rate 18 05/10/25 19:31 Blood Pressure 189/117 H 05/10/25 19:31 Pulse Oximetry 97 05/10/25 19:31 Oxygen Delivery Method Room Air 05/10/25 19:31 Oxygen Flow Rate 0 05/10/25 19:31 Pain Level 5 05/10/25 19:31 Medical Decision Making This is a 40-year-old male patient presenting for evaluation after being kicked by a horse in the right forearm/wrist. Differential includes but is not limited to fracture, dislocation, hematoma, sprain/strain. No evidence for skin breaks, patient's injury is isolated and reassuringly there is no other evidence for traumatic injuries besides the right forearm/wrist. We will provide the patient with ice, Tylenol, and ibuprofen for management of pain and swelling, and we will obtain an x-ray of the affected right wrist and forearm. - X-ray imaging reviewed and read by myself, showing no acute fractures or dislocations, workup most concerning for hematoma. I counseled the patient on conservative management, ice and elevation for swelling, Tylenol ibuprofen for pain, provided him with an Cecil wrap for gentle compression. At this time, the patient has had a full medical evaluation and is safe for discharge to home. They are hemodynamically stable, ambulatory, and tolerating PO. They are understanding of the follow-up plan and return precautions. They left our facility without incident. 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) Low HDL (under 40) (Acute 07/20/18) Migraine headache with aura (Chronic) Family History Father Heart disease Myocardial infarction PACEMAKER Son Crohn's colitis Social History Smoking/Tobacco Use Status: Never Tobacco: How many years used: 0 Second Hand Exposure: Yes Smoking risk assessment performed?: Yes Alcohol Intake: former Drug use: Never Substance use type: does not use Counseling given: No Caregiver/Support person: No Household members: spouse and children Housing: house Number of Children: 4 Communication Needs: None Do you need help understanding health information?: Never Pets and animals: Yes Pets and animals: cat(s), dog(s) and horse(s) Sexually active: Yes Do you think of yourself as: straight/heterosexual Current gender identity: male What is your relationship status?: How often do you talk on the phone with friends or family?: once per week How often do you get together with friends or relatives?: once per week How often do you attend samaritan or lutheran services?: 1-3 times per year Do you belong to any clubs or organized social groups?: no Panel score (0-1 are the most socially isolated patients): 1 What type of physical activity do you participate in: walking and weight lifting Duration: 45-60 minutes/day Frequency: 3-4 times per week Althea/Evangelical: None Special althea needs: No Seatbelt use: always Helmet use: Yes Helmet use: sometimes Drive intox or ride w/intox commercial collections driver: No Do you feel safe at home: Yes Do you feel safe in your relationship?: Yes Additional Social history: 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 His piping drafter shifts are 24 hours on, 48 hours off.
[2025-05-10] MEDS: Ibuprofen 600 MG TAB PO (19:43)
[2025-05-10] MEDS: Acetaminophen 500 MG TAB 1000 MG PO (19:44)
--- NOTE | 2025-05-10 20:39 | DI.VRAD_ITS ---
PROCEDURE INFORMATION: Exam: XR Left Wrist Exam date and time: 05/10/2025 7:52 PM Age: 40 years old Clinical indication: Injury or trauma; Other: Horse ax; Blunt trauma (contusions or hematomas); Wrist; Left; HX of FX TECHNIQUE: Imaging protocol: Radiologic exam of the left wrist. Views: 3 or more views. COMPARISON: MR UPPER JOINT LT WO 08/18/2023 10:03 AM FINDINGS: Bones/joints: There is mild chronic appearing deformity of the mid and distal aspects of the scaphoid which could represent old healed fracture. There are no acute displaced fractures or subluxations. There is mild degenerative spurring along the posterior aspect of the joint space between the capitate and lunate. The joint spaces appear maintained. Osseous mineralization is normal. There are no inflammatory osseous erosive changes. Soft tissues: Normal. IMPRESSION: No acute displaced fractures or subluxations identified. Dictated and Authenticated by: Jeison Barrett MD. Orderin [facility] Ton Jauregui MD
--- NOTE | 2025-05-10 20:40 | DI.VRAD_ITS ---
PROCEDURE INFORMATION: Exam: XR Right Forearm Exam date and time: 05/10/2025 7:50 PM Age: 40 years old Clinical indication: Injury or trauma; Other: Kicked by horse, lateral swelling; Blunt trauma (contusions or hematomas); Arm, lower; Right TECHNIQUE: Imaging protocol: Radiologic exam of the right forearm. Views: 2 views. COMPARISON: US SOFT TISS EXTREMITY/GROIN 04/06/2024 12:34 PM FINDINGS: Bones/joints: There are no acute displaced fractures or subluxations. The joint spaces are maintained without degenerative changes. Osseous mineralization is normal. There are no inflammatory osseous erosive changes. Soft tissues: Findings suggest mild soft tissue swelling around the distal diaphyses of the radius and ulna. IMPRESSION: No acute displaced fractures or subluxations identified. Dictated and Authenticated by: Jeison Barrett MD. Orderin [facility] Jauregui MD
== END 2025-05-10 20:19 | disposition home or self-care (01) ==
PROVIDERS: Emergency Provider Emergency Medicine; PCP Family Medicine
DX: S50.11XA Contusion of right forearm, initial encounter (principal); W55.12XA Struck by horse, initial encounter
CPT/HCPCS: 99284; 99283; 73090; 73110